=== PATIENT | female | born 1960 | race Caucasian/White ===

== ENCOUNTER → 2019-10-29 | Day surgery (SDC) | payer OTHER ==
[~2019-10-29] MED LIST: ACYC400T PO; IPRATRPIUM/ALBUTEROL 0.5/2.5MG 3 ML NEBU. NEB PRN; IV RINGERS SOLUTION,LACTATED 1,000 ML IV SCH; MULT-245 PO; MV-M1TAB7 PO; ONDANSETRON PF 4 MG/2 ML VIAL. IV PRN; PROPOFOL 10,000 MCG/ML (20ML) VIAL IV ONE
[2019-10-29 10:31] VITALS: BP 113/67
--- NOTE | 2019-10-30 18:10 | PATHOLOGY ---
[facility] Accession Number: [id number] . 01 Material submitted: . colon - ASCENDING COLON POLYP. Modifiers: ascending . 02 Diagnosis: Colon biopsies, ascending colon polyp: - Tubular adenoma. (DONTAE:shannan; 10/30/2019) MBR 10/30/2019 1715 Local . 02 Comment: There is a no high-grade dysplasia or evidence of malignancy. (DONTAEM:shannan; 10/30/2019) . 02 Electronically signed: . Chava Salazar MD, Pathologist NPI- [id number] . 01 Gross description: . The specimen is received in formalin, labeled "Mettlen, Kim, ascending polyp" and consists of 2 fragments of pink-montero tissue measuring 0.5 x 0.3 x 0.2 cm in aggregate which are entirely submitted in A1. ([facility]; 10/29/2019) JFQ/JFQ 10/29/2019 1759 Local . 02 Pathologist provided ICD-10: D12.2 . 02 CPT . 446684 Specimen Comment: A courtesy copy of this report has been sent to [phone], [phone] Specimen Comment: [phone] Specimen Comment: Report sent to / DR MELENDEZ Performed at: 01 [facility] [address], [place], [place] [id number] MD Guevara Gregory MD Phone: [phone] Performed at: 02 [facility] [address] [place], [place] [id number] MD Chava Salazar MD Phone: [phone]
== END | disposition home or self-care (01) ==
LOC: SURG 08:01
PROVIDERS: ATTEND Internal Medicine Gastroenterology
DX: Z12.11 Encounter for screening for malignant neoplasm of colon (principal); Z11.59 Encounter for screening for other viral diseases; D12.2 Benign neoplasm of ascending colon; K57.30 Diverticulosis of large intestine without perforation or abscess without bleeding; K63.89 Other specified diseases of intestine; Z79.899 Other long term (current) drug therapy; Z90.49 Acquired absence of other specified parts of digestive tract; Z90.710 Acquired absence of both cervix and uterus; Z98.890 Other specified postprocedural states; Z88.0 Allergy status to penicillin
CPT/HCPCS: 36415; 45380; 88305; J2704; J7120; U0003